=== PATIENT | female | born 1970 | race Caucasian/White ===

== ENCOUNTER 2020-04-27 15:13 | Outpatient (REF) | payer BC, SELFPAY ==
--- NOTE | 2020-04-27 14:30 | VUL_PTH ---
PATIENT: ELVIN OROZCO LOC: [facility] U#:[id number] AGE/SX: 49/F ROOM: RE04/27/[address]: Joie Mauricio DO : 1970 BED: DIS: 04/27/2020 SPEC #: [id number] RECD: 04/27/20 17:49 STATUS: MICK REQ #: [id number] FRED: 04/27/20 14:[address]: Joie Mauricio DEPT: Surgical Specimen RECD BY: Ludy Dawn ENTERED: 04/27/20 17:50 SP TYPE: VUL OTHR DR: Caroline Ibanez Tissues: 1 - VULVA BIOPSY Procedures: GROSS AND MICRO LEVEL 4 Comments: [id number]
== END 2020-04-27 15:33 ==
LOC: LBN 15:13
PROVIDERS: PCP Physician Assistant; Visit Provider Obstetrics & Gynecology
DX: C51.9 Malignant neoplasm of vulva, unspecified (principal)
CPT/HCPCS: 88305